=== PATIENT | male | born 1985 | race Caucasian/White ===

== ENCOUNTER 2017-02-07 08:52 | Emergency (ER) | payer OTHER ==
[2017-02-07 09:04] VITALS: BP 130/87
[2017-02-07] MEDS ORDERED: Albuterol/Ipratropium NEB.SOL* Albuterol 2.5 MG/Ipratropium 0.5 MG 3 ML INH ONE (09:13)
--- NOTE | 2017-02-07 09:22 | UC ---
Asthma HPI - HPI Summary HPI Summary: Pt has well-controlled asthma (has barely used albuterol in the last year), started having symptoms yesterday that worsened throughout the day and overnight. Currently feeling wheezy and tight with a productive cough. - History of Current Complaint Chief Complaint: UCRespiratory Stated Complaint: ASHTMA ATTACK Time Seen by Provider: 02/07/17 09:08 Hx Obtained From: Patient Onset/Duration: Gradual Onset, Lasting Hours Timing: Constant Initial Severity: Mild Current Severity: Moderate Location/Character: Cough (Productive) Aggravating: Exertion, Weather Change Alleviating: Rest, Inhalers/Nebulizers Associated Signs and Symptoms: Positive: Negative - Allergy/Home Medications Allergies/Adverse Reactions: Allergies Allergy/AdvReac Type Severity Reaction Status Date / Time No Known Allergies Allergy Verified 02/05/16 16:06 PMH/Surg Hx/FS Hx/Imm Hx Endocrine History Of: Denies: Diabetes, Thyroid Disease Cardiovascular History Of: Denies: Cardiac Disorders, Hypertension Respiratory History Of: Reports: Asthma Denies: COPD GI/ History Of: Denies: Ulcer - Surgical History Surgical History: None - Family History Known Family History: Positive: Unknown, Other - NONCONTRIBUTORY - Social History Lives: Alone Alcohol Use: None Substance Use Type: None Smoking Status (MU): Smoker, Current Status Unknown Type: eCigarettes Amount Used/How Often: less than 1/2 ppd Review of Systems Constitutional: Negative Skin: Negative Eyes: Negative ENT: Negative Respiratory: Shortness Of Breath, Cough Cardiovascular: Negative Gastrointestinal: Negative Genitourinary: Negative Motor: Negative Neurovascular: Negative Musculoskeletal: Negative Neurological: Negative Psychological: Negative All Other Systems Reviewed And Are Negative: Yes Physical Exam Triage Information Reviewed: Yes Appearance: No Pain Distress, Well-Nourished Vital Signs: Initial Vital Signs Temp 97.2 F 02/07/17 09:00 Pulse 111 02/07/17 09:00 Resp 18 02/07/17 09:00 BP 130/87 02/07/17 09:00 Pulse Ox 95 02/07/17 09:00 Vital Signs Reviewed: Yes Eye Exam: Normal Eyes: Positive: Conjunctiva Clear ENT Exam: Normal ENT: Positive: Normal ENT inspection, Hearing grossly normal, Pharynx normal, TMs normal Dental Exam: Normal Neck exam: Normal Neck: Positive: Supple, Nontender, No Lymphadenopathy Respiratory: Positive: Respiratory distress - mild, trouble finishing sentences , Decreased breath sounds, Accessory muscle use - increased WOB, Wheezing, Expiration. Negative: Rhonchi Cardiovascular: Positive: No Murmur, Tachycardia Musculoskeletal Exam: Normal Neurological Exam: Normal Psychological Exam: Normal Skin Exam: Normal Re-Evaluation - Re-Evaluation First Eval Re-Evaluation Time: 09:44 Change: Improved - improved air movement, wheezing still present. Pt reports feeling better. Asthma Course/Dx - Differential Dx/Diagnosis Provider Diagnoses: asthma exacerbation Discharge - Discharge Plan Condition: Stable Disposition: HOME
== END 2017-02-07 09:55 | disposition home or self-care (01) ==
LOC: UCEAST 08:52
DX: J45.901 Unspecified asthma with (acute) exacerbation (principal); F17.210 Nicotine dependence, cigarettes, uncomplicated
CPT/HCPCS: 99212; A9270-GY; G0463

== ENCOUNTER 2017-06-20 16:50 | Emergency (ER) | payer OTHER ==
[2017-06-20 16:55] VITALS: BP 120/81
--- NOTE | 2017-06-20 16:57 | UC ---
Asthma HPI - HPI Summary HPI Summary: ran out of neb and inhalers increasing chest tightness - History of Current Complaint Chief Complaint: UCRespiratory Stated Complaint: BREATHING ISSUE Time Seen by Provider: 06/20/17 16:55 Hx Obtained From: Patient Onset/Duration: Gradual Onset, Lasting Weeks, Still Present, Worse Since - Past week Timing: Constant Initial Severity: Moderate Current Severity: Moderate Pain Intensity: 3 Pain Scale Used: 0-10 Numeric Aggravating: Nothing Alleviating: Nothing Associated Signs and Symptoms: Positive: URI, Shortness of Breath - Allergy/Home Medications Allergies/Adverse Reactions: Allergies Allergy/AdvReac Type Severity Reaction Status Date / Time No Known Allergies Allergy Verified 06/20/17 16:55 PMH/Surg Hx/FS Hx/Imm Hx Previously Healthy: No Respiratory History: Asthma - Surgical History Surgical History: None - Family History Known Family History: Positive: Unknown, Other - NONCONTRIBUTORY - Social History Occupation: Employed Full-time Lives: With Family Alcohol Use: None Substance Use Type: None Substance Use Comment - Amount & Last Used: Cade devine Smoking Status (MU): Light Every Day Tobacco Smoker Type: eCigarettes Amount Used/How Often: less than 1/2 ppd Cessation Counseling: Patient Advised to Stop Review of Systems Constitutional: Negative Skin: Negative Eyes: Negative ENT: Negative Respiratory: Shortness Of Breath Cardiovascular: Negative Gastrointestinal: Negative Genitourinary: Negative Motor: Negative Neurovascular: Negative Musculoskeletal: Negative Neurological: Negative Psychological: Negative All Other Systems Reviewed And Are Negative: Yes Physical Exam Triage Information Reviewed: Yes Appearance: Well-Appearing, No Pain Distress, Well-Nourished Vital Signs: Initial Vital Signs Temp 98.1 F 06/20/17 16:51 Pulse 98 06/20/17 16:51 Resp 18 06/20/17 16:51 BP 120/81 06/20/17 16:51 Pulse Ox 99 06/20/17 16:51 Vital Signs Reviewed: Yes Eye Exam: Normal Eyes: Positive: Conjunctiva Clear ENT Exam: Normal ENT: Positive: Normal ENT inspection, Hearing grossly normal. Negative: Nasal congestion, Nasal drainage, Trismus, Muffled/hoarse voice Dental Exam: Normal Neck exam: Normal Neck: Positive: Supple, Nontender, No Lymphadenopathy Respiratory Exam: Normal Respiratory: Positive: Chest non-tender, No respiratory distress, No accessory muscle use, Wheezing, Expiration, Inspiration Cardiovascular Exam: Normal Cardiovascular: Positive: RRR, No Murmur, Pulses Normal, Brisk Capillary Refill Musculoskeletal Exam: Normal Musculoskeletal: Positive: Strength Intact, ROM Intact, No Edema Neurological Exam: Normal Neurological: Positive: Alert, Muscle Tone Normal Psychological Exam: Normal Skin Exam: Normal Re-Evaluation - Re-Evaluation First Eval Re-Evaluation Time: 17:20 Change: Improved Comment: fells much better increase airmovement decrease wheeze reviewed instructions home in good condition no c/o Asthma Course/Dx - Course Course Of Treatment: Refill inhalers and neb, follow with pcp - Differential Dx/Diagnosis Differential Diagnosis/HQI/PQRI: Acute Asthma, Bronchitis, Reactive Airway Disease Provider Diagnoses: Acute exacerbation of chronic asthma- Discharge - Discharge Plan Condition: Stable Disposition: HOME Prescriptions: Albuterol 2.5MG/3ML (0.083%)* [Ventolin 2.5 MG/3 ML NEB.MIQUEL*] 2.5 mg INH Q6H PRN #1 box PRN Reason: wheeze Albuterol HFA INHALER* [Ventolin HFA Inhaler*] 1 - 2 puff INH Q4H PRN #1 mdi PRN Reason: Sob/Wheezing Fluticasone-Salmeterol 250-50* [Advair Diskus 250-50*] 1 puff INH BID #1 diskus Patient Education Materials: Asthma (ED), Reactive Airways Disease (ED), How to Use a Nebulizer (ED), How to Use a Metered-Dose Inhaler (ED) Referrals: Donte Rodriguez MD [Primary Care Provider] - 2 Weeks
[2017-06-20] MEDS ORDERED: Albuterol/Ipratropium NEB.SOL* Albuterol 2.5 MG/Ipratropium 0.5 MG 3 ML INH ONE (17:01)
== END 2017-06-20 17:37 | disposition home or self-care (01) ==
LOC: UCEAST 16:50
DX: J45.901 Unspecified asthma with (acute) exacerbation (principal)
CPT/HCPCS: 99212; A9270-GY; G0463